=== PATIENT | female | born 1980 | race Caucasian/White ===

== ENCOUNTER 2017-08-18 15:17 | Emergency (ER) | payer MEDICAID ==
[2017-08-18] MEDS ORDERED: Benzocaine 20% Topical Spray UD MUCMEM ONE (15:27)
[2017-08-18] MEDS ORDERED: Lidocaine 2% Viscous Solution 15 ML Cup PO ONE (15:27)
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
== END 2017-08-18 17:25 | disposition home or self-care (01) ==
LOC: MW.ED 15:17
DX: K04.7 Periapical abscess without sinus (principal); F17.210 Nicotine dependence, cigarettes, uncomplicated
CPT/HCPCS: 99282; A9270

== ENCOUNTER 2018-06-04 16:10 | Inpatient (IN) | payer MEDICAID ==
[2018-06-04] MEDS ORDERED: Sodium Chloride 0.9% 10 ML SDV IV PRN (16:19)
[2018-06-04] MEDS ORDERED: Tranexamic Acid 1,000 MG in Sodium Chloride 0.9% 100 ML IV PRN (16:19)
[2018-06-04] MEDS ORDERED: Water For Irrigation,Sterile 1,000 ML Container IRR PRN (16:19)
[2018-06-04] MEDS ORDERED: Sodium Chloride 0.9% 2.5 ML Syringe FLUSH PRN (16:19)
[2018-06-04] MEDS ORDERED: Sodium Chloride 0.9% 10 ML Syringe FLUSH PRN (16:19)
[2018-06-04] MEDS ORDERED: Butorphanol 1 MG/ML SDV IVPUSH PRN (16:19)
[2018-06-04] MEDS ORDERED: Misoprostol 200 MCG Tab PO PRN (16:19)
[2018-06-04] MEDS ORDERED: Nalbuphine 10 MG/1 ML Vial IVPUSH PRN (16:19)
[2018-06-04] MEDS ORDERED: Lidocaine 1% 50 ML MDV INJECT PRN (16:19)
[2018-06-04] MEDS ORDERED: Methylergonovine 0.2 MG/1 ML Amp IM PRN (16:19)
[2018-06-04] MEDS ORDERED: Carboprost Tromethamine 250 MCG/1 ML Amp IM PRN (16:19)
[2018-06-04] MEDS ORDERED: Terbutaline 1 MG/ML SDV SUBCUT PRN (16:26)
[2018-06-04] MEDS ORDERED: Ondansetron 4 MG/2 ML SDV IVPUSH PRN (16:28)
[2018-06-04] MEDS ORDERED: Lactated Ringers 1,000 ML IV SCH (16:30)
[2018-06-04] MEDS ORDERED: Oxytocin/0.9 % Sodium Chloride 30 UNIT/500 ML BAG IV SCH ×2 (16:30)
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
[2018-06-04] MEDS ORDERED: Lidocaine HCl/EPINEPHrine 5 ML IJ ONE (18:06)
[2018-06-05] MEDS ORDERED: Lanolin 100% Cream 7 GM Tube TOP PRN (02:57)
[2018-06-05] MEDS ORDERED: Acetaminophen 500 MG Tab PO PRN ×2 (02:57)
[2018-06-05] MEDS ORDERED: Docusate Sodium 100 MG Cap PO PRN (02:57)
[2018-06-05] MEDS ORDERED: Bisacodyl 10 MG Supp RECTAL PRN (02:57)
[2018-06-05] MEDS ORDERED: Witch Hazel Medicated Pads 40/Jar TOP PRN (02:57)
[2018-06-05] MEDS ORDERED: Ibuprofen 400 MG Tab PO PRN (02:57)
[2018-06-05] MEDS ORDERED: Benzocaine/Menthol 20%-0.5% Spray 78 GM Cannister TOP PRN (02:57)
--- NOTE | 2018-06-05 07:28 | PCM.DEL ---
L & D Note - General Info Date of Service: 06/05/18 Mother's Due Date: 06/08/18 - Delivery Note Labor: Augmented by Oxytocin Cervical Ripening Method: Oxytocin Delivery Outcome: Livebirth Delivery Method: Spontaneous Vaginal Delivery-Single Presentation: Left Occiput Anterior (ALLISON) Nuchal Cord: None Anesthesia Type: Epidural Episiotomy Type: None Laceration: None Placenta: Intact Estimated Blood Loss: 200 Resuscitation Needed: No : Suctioned, Stimulated Score 1 min: 7 Score 5 min: 9 Delivery Comments (Free Text/Narrative):: Live male delivered at 201am , 7/9 , weight 3330g - General Info Date of Service: 06/05/18 - Patient Data Weight - Most Recent: 99.79 kg I&O - Last 24 Hours: Intake & Output 06/04/18 06/05/18 06/05/18 22:59 06:59 14:59 Output Total 2950 Balance -2950 Lab Results Last 24 Hours: Laboratory Results - last 24 hr 06/04/18 06/04/18 Range/Units 16:42 16:42 WBC 14.50 H (4.0-11.0) K/uL RBC 4.36 (4.30-5.90) M/uL Hgb 12.1 (12.0-16.0) g/dL Hct 35.6 L (36.0-46.0) % MCV 81.7 (80.0-98.0) fL MCH 27.8 (27.0-32.0) pg MCHC 34.0 (31.0-37.0) g/dL RDW Std Deviation 54.7 (28.0-62.0) fl RDW Coeff of Pearl 18 H (11.0-15.0) % Plt Count 270 (150-400) K/uL MPV 10.50 (7.40-12.00) fL Nucleated RBC % 0.0 /100WBC Nucleated RBCs # 0 K/uL Blood Type O POSITIVE Antibody Screen NEGATIVE Med Orders - Current: Current Medications Acetaminophen (Tylenol Extra Strength) 500 mg PO Q4H PRN PRN Reason: Pain Acetaminophen (Tylenol Extra Strength) 1,000 mg PO Q4H PRN PRN Reason: Pain Benzocaine/Menthol (Dermoplast Pain Relief 20%-0.5% [place]) 78 gm TOP ASDIRECTED PRN PRN Reason: Perineal Comfort Measure Bisacodyl (Dulcolax) 10 mg RECTAL ONETIME PRN PRN Reason: Constipation Docusate Sodium (Colace) 100 mg PO BID PRN PRN Reason: Constipation Emollient Ointment (Lansinoh Hpa) 0 gm TOP ASDIRECTED PRN PRN Reason: Sore Nipples Ibuprofen (Motrin) 400 mg PO Q4H PRN PRN Reason: Pain Ibuprofen (Motrin) 800 mg PO Q6H PRN PRN Reason: Pain Witch Tamra (Tucks) 1 pad TOP ASDIRECTED PRN PRN Reason: comfort care Discontinued Medications Butorphanol Tartrate (Stadol) 1 mg IVPUSH Q1H PRN PRN Reason: Pain Carboprost Tromethamine (Hemabate Ds) 250 mcg IM ASDIRECTED PRN PRN Reason: Post Hemorrhage Lactated Ringer's (Ringers, Lactated) 1,000 mls @ 150 mls/hr IV ASDIRECTED FRAN Last Infusion: 06/04/18 17:40 Dose: 999 mls/hr Oxytocin/Sodium Chloride (Oxytocin 30 Unit/500 Ml-Ns) 30 unit in 500 mls @ 999 mls/hr IV TITRATE FRAN Tranexamic Acid 1,000 mg/ (Sodium Chloride) 110 mls @ 660 mls/hr IV ONETIME PRN PRN Reason: Bleeding Oxytocin/Sodium Chloride (Oxytocin 30 Unit/500 Ml-Ns) 30 unit in 500 mls @ 2 mls/hr IV TITRATE FRAN; Protocol Last Titration: 06/05/18 02:02 Dose: 500 mls/hr Fentanyl/Bupivacaine HCl (Xfoanmkc-Vvuiz-Lr 2 Mcg/Ml-0.125%) Confirm Administered Dose 100 mls @ as directed .ROUTE .STK-MED ONE Stop: 06/04/18 18:07 Last Admin: 06/04/18 19:39 Dose: Not Given Fentanyl/Bupivacaine HCl (Aisekiry-Cdmlo-Re 2 Mcg/Ml-0.125%) Confirm Administered Dose 100 mls @ as directed .ROUTE .STK-MED ONE Stop: 06/05/18 01:04 Last Admin: 06/05/18 02:31 Dose: Not Given Lidocaine HCl (Xylocaine 1%) 50 ml INJECT ONETIME PRN PRN Reason: Laceration repair Lidocaine/Epinephrine (Lidocaine 1.5%-Epi 1:200,000) Confirm Administered Dose 5 ml IJ .STK-MED ONE Stop: 06/04/18 18:07 Last Admin: 06/04/18 19:40 Dose: Not Given Methylergonovine Maleate (Methergine) 0.2 mg IM ASDIRECTED PRN PRN Reason: Post Hemorrhage Misoprostol (Cytotec) 200 mcg PO ONETIME PRN PRN Reason: Post Hemorrhage Nalbuphine HCl (Nubain) 10 mg IVPUSH Q1H PRN PRN Reason: Pain (severe 7-10) Ondansetron HCl (Zofran) 4 mg IVPUSH Q6H PRN PRN Reason: Nausea/Vomiting Sodium Chloride (Saline Flush) 10 ml FLUSH ASDIRECTED PRN PRN Reason: Keep Vein Open Sodium Chloride (Saline Flush) 2.5 ml FLUSH ASDIRECTED PRN PRN Reason: Keep Vein Open Sodium Chloride (Normal Saline) 10 ml IV ASDIRECTED PRN PRN Reason: IV Use Sterile Water (Sterile Water For Irrigation) 1,000 ml IRR ASDIRECTED PRN PRN Reason: delivery Terbutaline Sulfate (Brethine) 0.25 mg SUBCUT ASDIRECTED PRN PRN Reason: Tacysystole - Problem List & Annotations (1) Vaginal delivery SNOMED Code(s): 709122670 Code(s): O80 - ENCOUNTER FOR FULL-TERM UNCOMPLICATED DELIVERY Status: Acute Current Visit: Yes - Problem List Review Problem List Initiated/Reviewed/Updated: Yes - My Orders Last 24 Hours: My Active Orders 06/05/18 02:01 Patient Status [ADT] Routine 06/05/18 02:57 May Shower [RC] ASDIRECTED Up ad Katherine [RC] ASDIRECTED Vital Signs [RC] PER UNIT ROUTINE Acetaminophen [Tylenol Extra Strength] 1,000 mg PO Q4H PRN Acetaminophen [Tylenol Extra Strength] 500 mg PO Q4H PRN Benzocaine/Menthol [Dermoplast Pain Relief 20%-0.5% [place]] 78 gm TOP ASDIRECTED PRN Bisacodyl [Dulcolax] 10 mg RECTAL ONETIME PRN Docusate Sodium [Colace] 100 mg PO BID PRN Ibuprofen [Motrin] 400 mg PO Q4H PRN Ibuprofen [Motrin] 800 mg PO Q6H PRN Lanolin [Lansinoh HPA] See Dose Instructions TOP ASDIRECTED PRN Witvee Tamra [Tucks] 1 pad TOP ASDIRECTED PRN Assess Lochia [WOMSER] Per Unit Routine Assess Uterine Involution [WOMSER] Per Unit Routine Peripheral IV Discontinue [OM.PC] Routine Resuscitation Status Routine 06/05/18 Breakfast Regular Diet [DIET] 06/06/18 05:11 HEMOGLOBIN/HEMATOCRIT,HH [HEME] Timed
--- NOTE | 2018-06-05 08:48 | PCM.PNPP ---
- General Info Date of Service: 06/05/18 Functional Status: Reports: Pain Controlled - Review of Systems General: Reports: No Symptoms HEENT: Reports: No Symptoms Pulmonary: Reports: No Symptoms Cardiovascular: Reports: No Symptoms Gastrointestinal: Reports: No Symptoms Genitourinary: Reports: No Symptoms Musculoskeletal: Reports: No Symptoms Skin: Reports: No Symptoms Neurological: Reports: No Symptoms Psychiatric: Reports: No Symptoms - Patient Data Vital Signs - Most Recent: Last Vital Signs Temp 36.7 C 06/05/18 07:25 Pulse 90 06/05/18 07:25 Resp 17 06/05/18 07:25 BP 124/68 06/05/18 07:25 Pulse Ox 97 06/05/18 07:25 Weight - Most Recent: 99.79 kg I&O - Last 24 Hours: Intake & Output 06/04/18 06/05/18 06/05/18 22:59 06:59 14:59 Output Total 2950 Balance -2950 Lab Results - Last 24 Hours: Laboratory Results - last 24 hr 06/04/18 06/04/18 Range/Units 16:42 16:42 WBC 14.50 H (4.0-11.0) K/uL RBC 4.36 (4.30-5.90) M/uL Hgb 12.1 (12.0-16.0) g/dL Hct 35.6 L (36.0-46.0) % MCV 81.7 (80.0-98.0) fL MCH 27.8 (27.0-32.0) pg MCHC 34.0 (31.0-37.0) g/dL RDW Std Deviation 54.7 (28.0-62.0) fl RDW Coeff of Pearl 18 H (11.0-15.0) % Plt Count 270 (150-400) K/uL MPV 10.50 (7.40-12.00) fL Nucleated RBC % 0.0 /100WBC Nucleated RBCs # 0 K/uL Blood Type O POSITIVE Antibody Screen NEGATIVE Med Orders - Current: Current Medications Acetaminophen (Tylenol Extra Strength) 500 mg PO Q4H PRN PRN Reason: Pain Acetaminophen (Tylenol Extra Strength) 1,000 mg PO Q4H PRN PRN Reason: Pain Benzocaine/Menthol (Dermoplast Pain Relief 20%-0.5% [place]) 78 gm TOP ASDIRECTED PRN PRN Reason: Perineal Comfort Measure Bisacodyl (Dulcolax) 10 mg RECTAL ONETIME PRN PRN Reason: Constipation Docusate Sodium (Colace) 100 mg PO BID PRN PRN Reason: Constipation Emollient Ointment (Lansinoh Hpa) 0 gm TOP ASDIRECTED PRN PRN Reason: Sore Nipples Ibuprofen (Motrin) 400 mg PO Q4H PRN PRN Reason: Pain Ibuprofen (Motrin) 800 mg PO Q6H PRN PRN Reason: Pain Witch Tamra (Tucks) 1 pad TOP ASDIRECTED PRN PRN Reason: comfort care Discontinued Medications Butorphanol Tartrate (Stadol) 1 mg IVPUSH Q1H PRN PRN Reason: Pain Carboprost Tromethamine (Hemabate Ds) 250 mcg IM ASDIRECTED PRN PRN Reason: Post Hemorrhage Lactated Ringer's (Ringers, Lactated) 1,000 mls @ 150 mls/hr IV ASDIRECTED FRAN Last Infusion: 06/04/18 17:40 Dose: 999 mls/hr Oxytocin/Sodium Chloride (Oxytocin 30 Unit/500 Ml-Ns) 30 unit in 500 mls @ 999 mls/hr IV TITRATE FRAN Tranexamic Acid 1,000 mg/ (Sodium Chloride) 110 mls @ 660 mls/hr IV ONETIME PRN PRN Reason: Bleeding Oxytocin/Sodium Chloride (Oxytocin 30 Unit/500 Ml-Ns) 30 unit in 500 mls @ 2 mls/hr IV TITRATE FRAN; Protocol Last Titration: 06/05/18 02:02 Dose: 500 mls/hr Fentanyl/Bupivacaine HCl (Gfdnujde-Jorqd-Bn 2 Mcg/Ml-0.125%) Confirm Administered Dose 100 mls @ as directed .ROUTE .STK-MED ONE Stop: 06/04/18 18:07 Last Admin: 06/04/18 19:39 Dose: Not Given Fentanyl/Bupivacaine HCl (Igwkevkl-Bkzlk-Ry 2 Mcg/Ml-0.125%) Confirm Administered Dose 100 mls @ as directed .ROUTE .STK-MED ONE Stop: 06/05/18 01:04 Last Admin: 06/05/18 02:31 Dose: Not Given Lidocaine HCl (Xylocaine 1%) 50 ml INJECT ONETIME PRN PRN Reason: Laceration repair Lidocaine/Epinephrine (Lidocaine 1.5%-Epi 1:200,000) Confirm Administered Dose 5 ml IJ .STK-MED ONE Stop: 06/04/18 18:07 Last Admin: 06/04/18 19:40 Dose: Not Given Methylergonovine Maleate (Methergine) 0.2 mg IM ASDIRECTED PRN PRN Reason: Post Hemorrhage Misoprostol (Cytotec) 200 mcg PO ONETIME PRN PRN Reason: Post Hemorrhage Nalbuphine HCl (Nubain) 10 mg IVPUSH Q1H PRN PRN Reason: Pain (severe 7-10) Ondansetron HCl (Zofran) 4 mg IVPUSH Q6H PRN PRN Reason: Nausea/Vomiting Sodium Chloride (Saline Flush) 10 ml FLUSH ASDIRECTED PRN PRN Reason: Keep Vein Open Sodium Chloride (Saline Flush) 2.5 ml FLUSH ASDIRECTED PRN PRN Reason: Keep Vein Open Sodium Chloride (Normal Saline) 10 ml IV ASDIRECTED PRN PRN Reason: IV Use Sterile Water (Sterile Water For Irrigation) 1,000 ml IRR ASDIRECTED PRN PRN Reason: delivery Terbutaline Sulfate (Brethine) 0.25 mg SUBCUT ASDIRECTED PRN PRN Reason: Tacysystole - Interaction Infant Disposition, : in Room with Family Interaction: Holding Feeding: Breastfed Infant; Nursed Well Support Person: Sister - Recovery Exam Fundal Level: 2 Fingerbreadths Below Umbilicus Fundal Placement: Midline Lochia Amount: Scant Lochia Color: Rubra/Red - Exam General: Alert, Oriented Lungs: Normal Respiratory Effort GI/Abdominal Exam: Soft, Non-Tender, No Distention Extremities: Normal Inspection, Normal Range of Motion, Non-Tender, No Pedal Edema, Normal Capillary Refill Skin: Warm, Dry, Intact Neurological: No New Focal Deficit Psy/Mental Status: Alert, Normal Affect, Normal Mood - Problem List & Annotations (1) Vaginal delivery SNOMED Code(s): 179420817 Code(s): O80 - ENCOUNTER FOR FULL-TERM UNCOMPLICATED DELIVERY Status: Acute Current Visit: Yes - Problem List Review Problem List Initiated/Reviewed/Updated: Yes - My Orders Last 24 Hours: My Active Orders 06/04/18 16:19 May Shower [RC] ASDIRECTED Notify Provider [RC] PRN Vital Signs [RC] PER UNIT ROUTINE 06/04/18 16:26 Bedrest Bathroom Privileges [RC] ASDIRECTED Notify Provider [RC] PRN Notify Provider [RC] STAT Oxygen Therapy [RC] ASDIRECTED Vital Signs [RC] PER UNIT ROUTINE - Assessment Assessment:: PPD0 after , stable, home in am - Plan Plan:: Continue care.
[2018-06-05] MEDS: Ibuprofen 800 MG Tab PO PRN ×2 (11:59→19:40)
--- NOTE | 2018-06-05 14:25 | PCM48HPAN ---
Post Anesthesia Note - EVALUATION WITHIN 48HRS OF ANESTHETIC Vital Signs in Normal Range: Yes Patient Participated in Evaluation: Yes Respiratory Function Stable: Yes Airway Patent: Yes Cardiovascular Function Stable: Yes Hydration Status Stable: Yes Pain Control Satisfactory: Yes Nausea and Vomiting Control Satisfactory: Yes Mental Status Recovered: Yes Resp Rate: 17
--- NOTE | 2018-06-05 14:57 | OR ---
SURGEON: PENNY HUERTAS DATE OF PROCEDURE: 06/05/2018 PREOPERATIVE DIAGNOSIS: A 37-year-old, G5, P4, at 39 weeks and 5 days, undergoing induction of labor for advanced maternal age and labile blood pressure. POSTOPERATIVE DIAGNOSIS: A 37-year-old, G5, P4, at 39 weeks and 5 days, undergoing induction of labor for advanced maternal age and labile blood pressure. PROCEDURE: Normal spontaneous vaginal delivery. ESTIMATED BLOOD LOSS: 200. IV FLUID: Pitocin running. NOTES AND FINDINGS: A live female delivered at 2:01 a.m. score was 7 and 9. Weight is 3330 g. BRIEF HISTORY ABOUT THE PATIENT: She is 37-year-old, G5, P4-0-0-4, at 39 weeks 4 days, who had some labile blood pressure of around 130. She denied headache, blurry vision, or right upper quadrant pain. She was also AMA and she was then counseled for induction of labor for maternal benefits. The patient understood the risks, benefits, and alternatives, and decided to proceed. The patient was 2 cm and induction of labor was started with Pitocin. The patient made change from 2 to 4 cm. IUPC was placed and the patient then had rapid labor progress and became fully dilated. The patient being fully dilated, she was encouraged to push. DESCRIPTION OF PROCEDURE: With good pushing effort, baby delivered the head, followed subsequently by the anterior and posterior shoulders. There was cord noted around the body, which was reduced. The infant was placed on maternal abdomen. Cord was clamped and cut. The placenta was delivered via controlled cord traction. The perineum was inspected and noted to be intact. The mother and baby were left in the room in stable condition. All instrument and pad counts were correct x2. STEFANY / LUISA /[id number] MARY
[2018-06-05] MEDS ORDERED: Ketorolac 30 MG/ML SDV IM ONE (20:29)
[2018-06-06] MEDS ORDERED: Ketorolac 30 MG/ML SDV IM ONE (02:56)
--- NOTE | 2018-06-06 08:04 | PCM.PNPP ---
<Irma Hendrickson - Last Filed: 06/06/18 08:02> - General Info Date of Service: 06/06/18 Functional Status: Reports: Pain Controlled, Tolerating Diet, Ambulating. Denies: Urinating - Review of Systems General: Denies: Fever, Weakness, Fatigue Pulmonary: Denies: Shortness of Breath, Pleuritic Chest Pain, Cough Cardiovascular: Denies: Chest Pain, Palpitations, Dyspnea on Exertion Gastrointestinal: Denies: Abdominal Pain Genitourinary: Denies: Dysuria - General Info Date of Service: 06/06/18 - Patient Data Vital Signs - Most Recent: Last Vital Signs Temp 36.4 C 06/06/18 07:45 Pulse 63 06/06/18 07:45 Resp 16 06/05/18 19:15 BP 112/67 06/06/18 07:45 Pulse Ox 95 06/06/18 07:45 Weight - Most Recent: 99.79 kg Lab Results - Last 24 Hours: Laboratory Results - last 24 hr 06/06/18 Range/Units 05:55 Hgb 10.7 L (12.0-16.0) g/dL Hct 33.7 L (36.0-46.0) % Med Orders - Current: Current Medications Acetaminophen (Tylenol Extra Strength) 500 mg PO Q4H PRN PRN Reason: Pain Acetaminophen (Tylenol Extra Strength) 1,000 mg PO Q4H PRN PRN Reason: Pain Benzocaine/Menthol (Dermoplast Pain Relief 20%-0.5% [place]) 78 gm TOP ASDIRECTED PRN PRN Reason: Perineal Comfort Measure Bisacodyl (Dulcolax) 10 mg RECTAL ONETIME PRN PRN Reason: Constipation Docusate Sodium (Colace) 100 mg PO BID PRN PRN Reason: Constipation Emollient Ointment (Lansinoh Hpa) 0 gm TOP ASDIRECTED PRN PRN Reason: Sore Nipples Ibuprofen (Motrin) 400 mg PO Q4H PRN PRN Reason: Pain Ibuprofen (Motrin) 800 mg PO Q6H PRN PRN Reason: Pain Last Admin: 06/05/18 19:40 Dose: 800 mg Witch Tamra (Tucks) 1 pad TOP ASDIRECTED PRN PRN Reason: comfort care Discontinued Medications Butorphanol Tartrate (Stadol) 1 mg IVPUSH Q1H PRN PRN Reason: Pain Carboprost Tromethamine (Hemabate Ds) 250 mcg IM ASDIRECTED PRN PRN Reason: Post Hemorrhage Lactated Ringer's (Ringers, Lactated) 1,000 mls @ 150 mls/hr IV ASDIRECTED FRAN Last Infusion: 06/04/18 17:40 Dose: 999 mls/hr Oxytocin/Sodium Chloride (Oxytocin 30 Unit/500 Ml-Ns) 30 unit in 500 mls @ 999 mls/hr IV TITRATE FRAN Tranexamic Acid 1,000 mg/ (Sodium Chloride) 110 mls @ 660 mls/hr IV ONETIME PRN PRN Reason: Bleeding Oxytocin/Sodium Chloride (Oxytocin 30 Unit/500 Ml-Ns) 30 unit in 500 mls @ 2 mls/hr IV TITRATE FRAN; Protocol Last Titration: 06/05/18 02:02 Dose: 500 mls/hr Fentanyl/Bupivacaine HCl (Vfyaziew-Jbzfo-Ih 2 Mcg/Ml-0.125%) Confirm Administered Dose 100 mls @ as directed .ROUTE .STK-MED ONE Stop: 06/04/18 18:07 Last Admin: 06/04/18 19:39 Dose: Not Given Fentanyl/Bupivacaine HCl (Auerecsv-Bubie-Bb 2 Mcg/Ml-0.125%) Confirm Administered Dose 100 mls @ as directed .ROUTE .STK-MED ONE Stop: 06/05/18 01:04 Last Admin: 06/05/18 02:31 Dose: Not Given Ketorolac Tromethamine (Toradol) 30 mg IM ONETIME ONE Stop: 06/05/18 20:30 Last Admin: 06/06/18 05:56 Dose: Not Given Ketorolac Tromethamine (Toradol) 30 mg IM ONETIME ONE Stop: 06/06/18 02:57 Last Admin: 06/06/18 03:05 Dose: 30 mg Lidocaine HCl (Xylocaine 1%) 50 ml INJECT ONETIME PRN PRN Reason: Laceration repair Lidocaine/Epinephrine (Lidocaine 1.5%-Epi 1:200,000) Confirm Administered Dose 5 ml IJ .STK-MED ONE Stop: 06/04/18 18:07 Last Admin: 06/04/18 19:40 Dose: Not Given Methylergonovine Maleate (Methergine) 0.2 mg IM ASDIRECTED PRN PRN Reason: Post Hemorrhage Misoprostol (Cytotec) 200 mcg PO ONETIME PRN PRN Reason: Post Hemorrhage Nalbuphine HCl (Nubain) 10 mg IVPUSH Q1H PRN PRN Reason: Pain (severe 7-10) Ondansetron HCl (Zofran) 4 mg IVPUSH Q6H PRN PRN Reason: Nausea/Vomiting Sodium Chloride (Saline Flush) 10 ml FLUSH ASDIRECTED PRN PRN Reason: Keep Vein Open Sodium Chloride (Saline Flush) 2.5 ml FLUSH ASDIRECTED PRN PRN Reason: Keep Vein Open Sodium Chloride (Normal Saline) 10 ml IV ASDIRECTED PRN PRN Reason: IV Use Sterile Water (Sterile Water For Irrigation) 1,000 ml IRR ASDIRECTED PRN PRN Reason: delivery Terbutaline Sulfate (Brethine) 0.25 mg SUBCUT ASDIRECTED PRN PRN Reason: Tacysystole - Interaction Disposition, : in Room with Family Interaction: Holding Infant Feeding: Breastfed ; Nursed Well Support Person: Sister - Recovery Exam Fundal Tone: Firm Fundal Level: 1 Fingerbreadths Below Umbilicus Fundal Placement: Midline Lochia Amount: Scant Lochia Color: Rubra/Red Perineum Description: Intact, Minimal Bruising/Swelling Episiotomy/Laceration: None Bladder Status: Voiding Urinary Elimination: Voided - Exam General: Alert, Oriented Neck: Supple Lungs: Clear to Auscultation, Normal Respiratory Effort Cardiovascular: Regular Rate, Regular Rhythm GI/Abdominal Exam: Normal Bowel Sounds, Soft, Non-Tender, No Distention, No Mass Extremities: Normal Inspection, Non-Tender, Normal Capillary Refill, Pedal Edema (trace) Skin: Warm, Dry, Intact - Problem List & Annotations (1) Vaginal delivery SNOMED Code(s): 972066761 Code(s): O80 - ENCOUNTER FOR FULL-TERM UNCOMPLICATED DELIVERY Status: Acute Current Visit: Yes - Problem List Review Problem List Initiated/Reviewed/Updated: Yes - Assessment Assessment:: PPD1 after , stable, Minimal pain and lochia. Breast feeding well. Discharge home today. - Plan Plan:: Discharge home today. Pelvic rest for 6 weeks. Can use OTC ibuprofen/tylenol as needed for pain. Instructed patient to call if she develops fever greater than 101 or bleeding through a large pad an hour. F/U with [facility] IN 6 weeks <Pinky Roth - Last Filed: 06/06/18 08:11> - Patient Data Vital Signs - Most Recent: Last Vital Signs Temp 36.4 C 06/06/18 07:45 Pulse 63 06/06/18 07:45 Resp 16 06/05/18 19:15 BP 112/67 06/06/18 07:45 Pulse Ox 95 06/06/18 07:45 Lab Results - Last 24 Hours: Laboratory Results - last 24 hr 06/06/18 Range/Units 05:55 Hgb 10.7 L (12.0-16.0) g/dL Hct 33.7 L (36.0-46.0) % Med Orders - Current: Current Medications Acetaminophen (Tylenol Extra Strength) 500 mg PO Q4H PRN PRN Reason: Pain Acetaminophen (Tylenol Extra Strength) 1,000 mg PO Q4H PRN PRN Reason: Pain Benzocaine/Menthol (Dermoplast Pain Relief 20%-0.5% [place]) 78 gm TOP ASDIRECTED PRN PRN Reason: Perineal Comfort Measure Bisacodyl (Dulcolax) 10 mg RECTAL ONETIME PRN PRN Reason: Constipation Docusate Sodium (Colace) 100 mg PO BID PRN PRN Reason: Constipation Emollient Ointment (Lansinoh Hpa) 0 gm TOP ASDIRECTED PRN PRN Reason: Sore Nipples Ibuprofen (Motrin) 400 mg PO Q4H PRN PRN Reason: Pain Ibuprofen (Motrin) 800 mg PO Q6H PRN PRN Reason: Pain Last Admin: 06/05/18 19:40 Dose: 800 mg Witch Tamra (Tucks) 1 pad TOP ASDIRECTED PRN PRN Reason: comfort care Discontinued Medications Butorphanol Tartrate (Stadol) 1 mg IVPUSH Q1H PRN PRN Reason: Pain Carboprost Tromethamine (Hemabate Ds) 250 mcg IM ASDIRECTED PRN PRN Reason: Post Hemorrhage Lactated Ringer's (Ringers, Lactated) 1,000 mls @ 150 mls/hr IV ASDIRECTED FRAN Last Infusion: 06/04/18 17:40 Dose: 999 mls/hr Oxytocin/Sodium Chloride (Oxytocin 30 Unit/500 Ml-Ns) 30 unit in 500 mls @ 999 mls/hr IV TITRATE FRAN Tranexamic Acid 1,000 mg/ (Sodium Chloride) 110 mls @ 660 mls/hr IV ONETIME PRN PRN Reason: Bleeding Oxytocin/Sodium Chloride (Oxytocin 30 Unit/500 Ml-Ns) 30 unit in 500 mls @ 2 mls/hr IV TITRATE FRAN; Protocol Last Titration: 06/05/18 02:02 Dose: 500 mls/hr Fentanyl/Bupivacaine HCl (Xyipxfov-Autzo-Cd 2 Mcg/Ml-0.125%) Confirm Administered Dose 100 mls @ as directed .ROUTE .STK-MED ONE Stop: 06/04/18 18:07 Last Admin: 06/04/18 19:39 Dose: Not Given Fentanyl/Bupivacaine HCl (Zmaqficz-Mtmjx-Bu 2 Mcg/Ml-0.125%) Confirm Administered Dose 100 mls @ as directed .ROUTE .STBalloon-MED ONE Stop: 06/05/18 01:04 Last Admin: 06/05/18 02:31 Dose: Not Given Ketorolac Tromethamine (Toradol) 30 mg IM ONETIME ONE Stop: 06/05/18 20:30 Last Admin: 06/06/18 05:56 Dose: Not Given Ketorolac Tromethamine (Toradol) 30 mg IM ONETIME ONE Stop: 06/06/18 02:57 Last Admin: 06/06/18 03:05 Dose: 30 mg Lidocaine HCl (Xylocaine 1%) 50 ml INJECT ONETIME PRN PRN Reason: Laceration repair Lidocaine/Epinephrine (Lidocaine 1.5%-Epi 1:200,000) Confirm Administered Dose 5 ml IJ .STK-MED ONE Stop: 06/04/18 18:07 Last Admin: 06/04/18 19:40 Dose: Not Given Methylergonovine Maleate (Methergine) 0.2 mg IM ASDIRECTED PRN PRN Reason: Post Hemorrhage Misoprostol (Cytotec) 200 mcg PO ONETIME PRN PRN Reason: Post Hemorrhage Nalbuphine HCl (Nubain) 10 mg IVPUSH Q1H PRN PRN Reason: Pain (severe 7-10) Ondansetron HCl (Zofran) 4 mg IVPUSH Q6H PRN PRN Reason: Nausea/Vomiting Sodium Chloride (Saline Flush) 10 ml FLUSH ASDIRECTED PRN PRN Reason: Keep Vein Open Sodium Chloride (Saline Flush) 2.5 ml FLUSH ASDIRECTED PRN PRN Reason: Keep Vein Open Sodium Chloride (Normal Saline) 10 ml IV ASDIRECTED PRN PRN Reason: IV Use Sterile Water (Sterile Water For Irrigation) 1,000 ml IRR ASDIRECTED PRN PRN Reason: delivery Terbutaline Sulfate (Brethine) 0.25 mg SUBCUT ASDIRECTED PRN PRN Reason: Tacysystole - Problem List & Annotations (1) Vaginal delivery SNOMED Code(s): 303173502 Code(s): O80 - ENCOUNTER FOR FULL-TERM UNCOMPLICATED DELIVERY Status: Acute Current Visit: Yes - Problem List Review Problem List Initiated/Reviewed/Updated: Yes - Assessment Assessment:: Patient was seen and examined and I agree with above. Patient has voided.
== END 2018-06-06 10:00 | disposition home or self-care (01) | DRG 807 ==
LOC: MW.OBCHECK 16:10 → MW.OB 16:11 → MW.OBCHECK 16:19 → MW.OB 16:19
PROVIDERS: ADMIT Obstetrics & Gynecology; ATTEND Obstetrics & Gynecology
PROC: 10E0XZZ Delivery of Products of Conception, External Approach (ICD-10-PCS; principal; 2018-06-04)
PROC: 3E033VJ Introduction of Other Hormone into Peripheral Vein, Percutaneous Approach (ICD-10-PCS; 2018-06-04)
PROC: 3E0P7VZ Introduction of Hormone into Female Reproductive, Via Natural or Artificial Opening (ICD-10-PCS; 2018-06-04)
DX: O13.4 Gestational [pregnancy-induced] hypertension without significant proteinuria, complicating childbirth (principal); Z37.0 Single live birth; O69.82X0 Labor and delivery complicated by other cord entanglement, without compression, not applicable or unspecified; Z3A.39 39 weeks gestation of pregnancy; O99.284 Endocrine, nutritional and metabolic diseases complicating childbirth; E03.9 Hypothyroidism, unspecified
CPT/HCPCS: 36415; 51702; 59025; 59409; 85014; 85018; 85027; 86850; 86900; 86901; A9270-GY; J1885; J2590; J7120

== ENCOUNTER 2018-07-14 02:46 | Emergency (ER) | payer MEDICAID ==
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
== END 2018-07-14 03:35 | disposition home or self-care (01) ==
LOC: MW.ED 02:46
DX: J01.90 Acute sinusitis, unspecified (principal); K21.9 Gastro-esophageal reflux disease without esophagitis; Z79.899 Other long term (current) drug therapy
CPT/HCPCS: 81001; 87804; 99283

== ENCOUNTER 2019-05-09 05:53 | Inpatient (IN) | payer MEDICAID ==
[2019-05-09] MEDS ORDERED: Misoprostol 200 MCG Tab PO PRN (05:55)
[2019-05-09] MEDS ORDERED: Tranexamic Acid 1,000 MG in Sodium Chloride 0.9% 100 ML IV PRN (05:55)
[2019-05-09] MEDS ORDERED: Water For Irrigation,Sterile 1,000 ML Container IRR PRN (05:55)
[2019-05-09] MEDS ORDERED: Carboprost Tromethamine 250 MCG/1 ML Amp IM PRN (05:55)
[2019-05-09] MEDS ORDERED: Sodium Chloride 0.9% 10 ML Syringe FLUSH PRN (05:55)
[2019-05-09] MEDS ORDERED: Sodium Chloride 0.9% 2.5 ML Syringe FLUSH PRN (05:55)
[2019-05-09] MEDS ORDERED: Lidocaine 1% 50 ML MDV INJECT PRN (05:55)
[2019-05-09] MEDS ORDERED: Methylergonovine 0.2 MG/1 ML Amp IM PRN (05:55)
[2019-05-09] MEDS ORDERED: Butorphanol 1 MG/ML SDV IVPUSH PRN (05:55)
[2019-05-09] MEDS ORDERED: Ondansetron 4 MG/2 ML SDV IVPUSH PRN (05:55)
[2019-05-09] MEDS ORDERED: Terbutaline 1 MG/ML SDV SUBCUT PRN (05:55)
[2019-05-09] MEDS ORDERED: Nalbuphine 10 MG/1 ML Vial IVPUSH PRN (05:55)
[2019-05-09] MEDS ORDERED: Sodium Chloride 0.9% 10 ML SDV IV PRN (05:55)
[2019-05-09] MEDS ORDERED: Oxytocin/0.9 % Sodium Chloride 30 UNIT/500 ML BAG IV SCH ×2 (06:00)
[2019-05-09] MEDS: Lactated Ringers 1,000 ML IV SCH ×4 (06:20→12:47)
[2019-05-09] MEDS ORDERED: fentaNYL 100 MCG/2 ML SDV ONE (08:26)
[2019-05-09] MEDS ORDERED: Bupivicaine/fentaNYL/NS 250 ML ONE (08:27)
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
[2019-05-09] MEDS ORDERED: Bupivacaine 0.5% 10 ML SDV ONE (10:19)
[2019-05-09] MEDS ORDERED: Lidocaine 2% with EPINEPHrine 1:100,000 20 ML MDV ONE (10:40)
--- NOTE | 2019-05-09 11:02 | PCM.PRNOTE ---
- Free Text/Narrative Note: Anes Note Patient has an existing epidural which is not providing complete analgesia. Existing epidural cath removed easily and complete. Sitting position, level L3-L4 midline approach. Sterile prep to lumbar area with betadine scrub X3. Sterile fenestrated drape applied. Epidural space easily achieved using JUAN ALBERTO technique. JUAN ALBERTO at 4 cm. Cath threaded 5 cm with ease. Cath secured at 9 cm at skin using sterile clear adhesive dressing. 1050 Test 3 cc 1.4% lidow tih epi negative. 1054 Load 6 cc 2% lido with epi in slow divided doses. 1059 Pump started with 250 cc 0.2% ropivicaine with 1 mcg cc fentanyl. Rate is 8 cc hr with 6 cc q 20 min prn bolus. Gianni well. Time with patient [id number] Pavel Kasper CRNA
[2019-05-09] MEDS ORDERED: Lanolin 100% Cream 7 GM Tube TOP PRN (13:45)
[2019-05-09] MEDS ORDERED: Benzocaine/Menthol 20%-0.5% Spray 78 GM Cannister TOP PRN (13:45)
[2019-05-09] MEDS ORDERED: Docusate Sodium 100 MG Cap PO PRN (13:45)
[2019-05-09] MEDS ORDERED: Acetaminophen 500 MG Tab PO PRN ×2 (13:45)
[2019-05-09] MEDS ORDERED: Witch Hazel Medicated Pads 40/Jar TOP PRN (13:45)
[2019-05-09] MEDS ORDERED: Bisacodyl 10 MG Supp RECTAL PRN (13:45)
[2019-05-09] MEDS ORDERED: Ibuprofen 400 MG Tab PO PRN (13:45)
--- NOTE | 2019-05-09 15:47 | OR ---
SURGEON: Bladimir Chris MD DATE OF PROCEDURE: 05/09/2019 INDICATION FOR PROCEDURE: A 38-year-old, G6, P 5-0-0-5, at 39 weeks and 0 days, admitted for elective induction of labor. The patient had uncomplicated . GBS was negative. She was given Pitocin for induction. She received an epidural with good pain control. Category 1 tracing. She had AROM with clear fluid. She progressed to fully dilated and began to push with contractions. PREOPERATIVE DIAGNOSIS: Forte intrauterine at 39 weeks and 0 days. POSTOPERATIVE DIAGNOSIS: Forte intrauterine at 39 weeks and 0 days. PROCEDURE PERFORMED: Normal spontaneous vaginal delivery. ANESTHESIOLOGIST: Dr. Yumiko Salcido. ANESTHESIA: Epidural anesthesia. FINDINGS: Viable female infant. score of 8 and 9. weight is pending. DESCRIPTION OF PROCEDURE: The patient pushed with contractions for approximately 5 minutes. head delivered in occiput anterior position over intact perineum, restituted LOT. No nuchal cord. Anterior shoulder delivered easily followed by posterior shoulder and remaining body. Baby was placed on maternal chest and evaluated by awaiting nursery staff. The baby was pink, crying, and moving all extremities immediately after delivery. Umbilical cord was clamped and cut after 60 seconds and no longer pulsating. The umbilical cord gases were obtained. Placenta was removed with gentle traction on the umbilical cord. It was found to be intact with 3-vessel cord. Perineum was examined and no lacerations were noted. Fundal massage with uterus firm and below the umbilicus. Bleeding was minimal. She tolerated the procedure well. The patient was given care instructions. JACKIE / LUISA /[id number] MARY
[2019-05-09] MEDS: Ibuprofen 800 MG Tab PO PRN ×2 (16:00→16:21)
--- NOTE | 2019-05-10 06:51 | PCM48HPAN ---
Post Anesthesia Note - EVALUATION WITHIN 48HRS OF ANESTHETIC Vital Signs in Normal Range: Yes Patient Participated in Evaluation: Yes Respiratory Function Stable: Yes Airway Patent: Yes Cardiovascular Function Stable: Yes Hydration Status Stable: Yes Pain Control Satisfactory: Yes Nausea and Vomiting Control Satisfactory: Yes Mental Status Recovered: Yes Vital Signs: Last Vital Signs Temp 36.3 C 05/09/19 20:06 Pulse 77 05/09/19 20:06 Resp 17 05/09/19 20:06 BP 121/77 05/09/19 20:06 Pulse Ox 97 05/09/19 20:06
== END 2019-05-09 22:15 | disposition still patient (30) | DRG 807 ==
LOC: MW.OBCHECK 05:53 → MW.OB 05:55 → MW.OBCHECK 05:56 → MW.OB 06:24 → OBSVTOIN 13:32 → MW.OB 17:03
PROVIDERS: ADMIT Obstetrics & Gynecology; ATTEND Obstetrics & Gynecology
PROC: 10E0XZZ Delivery of Products of Conception, External Approach (ICD-10-PCS; principal; 2019-05-09)
PROC: 10907ZC Drainage of Amniotic Fluid, Therapeutic from Products of Conception, Via Natural or Artificial Opening (ICD-10-PCS; 2019-05-09)
PROC: 3E033VJ Introduction of Other Hormone into Peripheral Vein, Percutaneous Approach (ICD-10-PCS; 2019-05-09)
PROC: 3E0R3BZ Introduction of Anesthetic Agent into Spinal Canal, Percutaneous Approach (ICD-10-PCS; 2019-05-09)
PROC: 00HU33Z Insertion of Infusion Device into Spinal Canal, Percutaneous Approach (ICD-10-PCS; 2019-05-09)
DX: O80 Encounter for full-term uncomplicated delivery (principal); Z37.0 Single live birth; Z3A.39 39 weeks gestation of pregnancy
CPT/HCPCS: 51702; 59025; 59409; 85027; 86592; 86850; 86900; 86901; A9270-GY; J2590; J3010; J3490; J7120